=== PATIENT | female | born 1975 | race Caucasian/White ===

== ENCOUNTER 2024-09-22 22:25 | Emergency (ER) | payer BC, SELFPAY ==
[2024-09-22 22:35] VITALS: BP 166/89
[2024-09-22 22:43] VITALS: BP 167/98
[2024-09-22 23:00] VITALS: BP 153/81
[2024-09-22 23:23] LABS: Urine Albumin Negative (Neg - Trace); Urine Bilirubin Negative (Negative); Urine Character Clear (Clear); Urine Color Straw; Urine Glucose Negative (Negative); Urine Ketone Negative (Negative); Urine Leukocyte Negative (Negative); Urine Nitrite Negative (Negative); Urine Occult Blood Negative (Negative); Urine Urobilinogen Negative (Neg - 1+)
--- NOTE | 2024-09-22 23:33 | ED.GENMED ---
History of Present Illness
General
Chief Complaint: Heart Rate Problem
Source: patient
Exam Limitations: none
Time Seen by Provider: 09/22/24 22:56
Nursing documentation reviewed up to this point in time: agreed with
History of Present Illness
History of Present Illness:
49 yo female w h/o Prothrombin gene mutations, hemochromatosis followed by Hematology, PE 2018, no longer anticoagulated, presents stating 'my blood pressure is usually low..it's been high for the past week: 160/95.' States while she was driving 2
p.m yesterday she developed chest tightness, felt shaky and 'my blood pressure went through the roof...' drove herself to [facility], reports she had neg workup including two neg Troponin, nl CXR, nl. labs. States her BP there was 170/98. They also
did a CT PE study which she reports was negative. She has been feeling 'not right' asks if she's had a problem with a right lower tooth, could that cause an infection in her heart? Asking 'what is making me feel this way?' States last night she was
jolted awake with sharp upper chest pain that she also felt in mid upper back, it is fleeting, for seconds and she has had several episodes since.
Denies anxiety.
States she has been urinating more frequently than usual lately denies dysuria. Denies flank pain
Past History
Past History
ED Past Medical History: Hypercholesterolemia and Other (Hemochromatosis)
ED Past Surgical History: Cholecystectomy
Patient has exhibited threatening behavior?: No
Social History
Tobacco: Non-smoker
Alcohol: Occasional
Drug: None
Personal: Single
Living: alone
Employment: Employed
Review of Systems
Review of Systems
Allergies reviewed?: Yes
All Other Systems: ROS reviewed and negative except as documented in HPI and ROS
Constitutional: Denies fever
Respiratory: Denies cough or trouble breathing
Cardiac: Reports chest pain; Denies diaphoresis or palpitations
ABD/GI: Denies abdominal pain, nausea, vomiting, diarrhea or anorexia
: Reports frequency; Denies dysuria, flank pain, difficulty voiding or urgency
Musculoskeletal: Reports no symptoms; Denies edema
Skin: Reports no symptoms
Neurological: Reports no symptoms
Phy Exam
Physical Exam
Physical Exam:
GENERAL: No acute distress. A&Ox3.
CONSTITUTIONAL: Afebrile.
EYES: clear, conjunctivae normal
ENMT: moist mucus membranes, Pharynx nl
RESPIRATORY: Regular respirations, nonlabored, lungs clear.
CARDIOVASCULAR: Regular rate and rhythm, no murmurs, no rubs.
GI: Soft, nontender, normal BS
MUSCULOSKELETAL: Moves with ease. Well perfused.
SKIN: Warm, dry, pink
PSYCH: Mildly anxious mood and affect. Well kept, interactive and appropriate
NEUROLOGIC: Awake, alert and oriented. No focal neurological deficits
Course
Orders/Labs/Results
Orders:
Orders
09/22/24 22:26
Electrocardiogram (*1) Urgent
Reason for Study: Palpitations
EKG- Treatment ONCE
09/22/24 23:14
Urinalysis Reflex To Culture Urgent
Date Specimen was Collected: 09/22/24
Time Specimen was Collected: 23:13
09/22/24 23:30
Lisinopril [Zestril] 2.5 mg PO NOW STA
09/22/24 23:35
Complete Blood Count/With Diff Urgent
Comprehensive Metabolic Panel Urgent
Troponin I Urgent
Abnormal Lab Results
09/22/24
23:35
WBC 12.2 H 10^3/uL
(4.8-10.8)
MCHC 32.9 L g/dL
(33.0-37.0)
Absolute Neuts (auto) 8.4 H 10^3/uL
(1.4-6.5)
Absolute Monos (auto) 0.7 H 10^3/uL
(0.1-0.6)
Glucose 124 H mg/dl
(70-99)
09/22/24 23:35
09/22/24 23:35
Vital Signs
Initial and Last Documented VS:
Initial Vital Signs
Temp Pulse Resp BP Pulse Ox
98.1 F 83 18 166/89 99
09/22/24 22:35 09/22/24 22:35 09/22/24 22:35 09/22/24 22:35 09/22/24 22:35
Last Documented Vital Signs
Temp Pulse Resp BP Pulse Ox
98.1 F 70 19 155/77 98
09/22/24 22:35 09/22/24 23:36 09/22/24 23:00 09/22/24 23:36 09/22/24 23:00
MDM/Problems Addressed
Differential Diagnosis Includes:
primary hypertension, anxiety about health, UTI
MDM/Problems Addressed:
49 yo female w h/o Prothrombin gene mutations, hemochromatosis followed by Hematology, PE 2017, no longer anticoagulated, presents stating 'my blood pressure is usually low..it's been high for the past week: 160/95.' States while she was driving 2
p.m yesterday she developed chest tightness, felt shaky and 'my blood pressure went through the roof...' drove herself to [facility], reports she had neg workup including two neg Troponin, nl CXR, nl. labs. States her BP there was 170/98. They also
did a CT PE study which she reports was negative. She has been feeling 'not right' asks if she's had a problem with a right lower tooth, could that cause an infection in her heart? Asking 'what is making me feel this way?' States last night she was
jolted awake with sharp upper chest pain that she also felt in mid upper back, it is fleeting, for seconds and she has had several episodes since.
Denies anxiety.
Afebrile, NAD
BP 163/89
EKG NSR
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
CMP normal
Troponin
U/A: Negative
11:45 BP 155/77 Pt very concerned about her blood pressure, states it's typically 117 systolic.
No end organ damage discussed with her. Gave her the option of recording her BP at home and discussing with her PCP or Auto Damage Appraiser and discussing BP med or starting low dose BP med now and f/u
She wants to start BP med now.
09/23/24 12:15 a.m.
BP 135/82
*EKG
EKG Intrepretation Date: 09/22/24
Interpretation: normal
Heart Rate: 81
Rate: normal
Rhythm: sinus
[place]: normal axis
Interval: normal interval
QRS Pattern: normal QRS
*Critical Care Note
Total Time (30-74mins, 75-104mins- exclusive of procedures): Not Applicable
ED Attending Note
-
Portions of this chart may have been created with voice recognition software.� Occasional wrong word or��sound alike� substitutions may have occurred due to the inherent limitations of voice recognition software.
Discharge Plan
Departure
Patient with high blood pressure during this ER visit?: Yes
Condition: Good
Discharge Problem:
HBP (high blood pressure)
Instructions: BLOOD PRESSURE
Prescriptions:
New
lisinopril 2.5 mg tablet
2.5 mg PO DAILY Qty: 30 0RF
No Action
acetaminophen [Tylenol Extra Strength] 500 MG tablet
1,000 mg PO PRN PRN (Reason: pain)
polyethylene glycol 3350 17 GRAMS powder in packet
17 grams PO DAILY Qty: 1 0RF
Rx Instructions:
use if no BM > 24h, best if started day of surgery to prevent
over the counter, no Rx given/needed
hydrocodone-acetaminophen 1 TABLET tablet
1 tab PO Q4HPRN PRN (Reason: moderate pain) Qty: 20 0RF
Rx Instructions:
can increase to 2tabs every 4h for severe pain
celecoxib 100 MG capsule
100 mg PO BID Qty: 1 0RF
Rx Instructions:
Can increase to 2 tabs every 12h postop. Use around the clock for first 2-3d, until pain subsides, then can switch to 'as needed'. Already has Rx at home
cyclobenzaprine 10 MG tablet
10 mg PO TIDPRN PRN (Reason: spasm) Qty: 9 0RF
Referrals:
Hank Barnett PA-C [Family Provider] - Call in 1-3 days for appt
Activity Restrictions/Additional Instructions:
As we discussed, your workup here today shows nothing worrisome.
Your EKG is normal
I sent a prescription to your pharmacy for lisinopril 2.5 mg to take daily until you can get into see your primary provider or your multiple knife edge trimmer operator to discuss whether or not you need to continue blood pressure medication.
Take your blood pressure daily under calm circumstances and record it so you can discuss it with your doctor.
Interventions
Interventions:
*Risk Screen - Suicide Last Done: 09/22/24 22:35
*General Assessment Last Done: 09/22/24 22:35
*Neglect/Abuse Screening Last Done: 09/22/24 22:35
ED- Fall Risk Assessment Last Done: 09/22/24 23:23
*ED COVID-19 Vaccine History Last Done: 09/22/24 22:35
ED- Cardiac Assessment Last Done: 09/22/24 23:23
ED- Pulmonary Assessment Last Done: 09/22/24 23:23
Discharge Date and Time
Print Language: DIVEHI
[2024-09-22 23:36] VITALS: BP 155/77
[2024-09-22] MEDS: ZESTRIL 2.5 MG PO (23:36)
[2024-09-22 23:47] LABS: % Basophils 0.3 % (0-2); % Eosinophils 0.9 % (0-6); % Immature Granulocytes 0.2 % (0-0.5); % Lymphocytes 24.4 % (20.5-51.1); % Monocytes 5.5 % (1.7-9.3); % Neutrophils 68.7 % (42.2-75.2); Absolute Eosinophils 0.1 10^3/uL (0-0.7); Absolute Monocytes 0.7 10^3/uL (0.1-0.6); Absolute Neutrophils 8.4 10^3/uL (1.4-6.5); Hemoglobin 12.5 g/dL (12.0-16.0); Mean Corp Hgb Conc. 32.9 g/dL (33.0-37.0); Mean Corpuscular Volume 88.2 fL (81.0-99.0); Mean Platelet Volume 10.4 fL (7.4-10.4); Nucleated Red Blood Cells % 0 %; Platelet Count 392 10^3/uL (130-400); Red Blood Cell Count 4.31 10^6/uL (4.20-5.40); Red Cell Dist. Width 12.5 % (11.5-14.5); White Blood Cell Count 12.2 10^3/uL (4.8-10.8)
[2024-09-22 23:59] LABS: ALT (SGPT) 18 U/L (0-35); AST (SGOT) 23 U/L (14-36); Albumin 4.3 g/dl (3.5-5.0); Alkaline Phosphatase 83 U/L (38-126); Blood Urea Nitrogen 13 mg/dl (7-17); Calcium 9.1 mg/dl (8.4-10.2); Carbon Dioxide 25 mmol/L (22-30); Chloride 104 mmol/L (98-107); Glucose 124 mg/dl (70-99); Potassium 4.6 mmol/L (3.5-5.1); Sodium 139 mmol/L (135-145); Total Bilirubin 0.4 mg/dl (0.2-1.3); Total Protein 7.4 g/dl (6.3-8.2); eGFR > 60.00
[2024-09-23] VITALS: BP 135/82
[2024-09-23 00:09] LABS: Troponin I < 0.012 ng/ml
== END 2024-09-23 00:27 | disposition home or self-care (01) ==
LOC: EMR 22:25
PROVIDERS: Registered Nurse; EMERGENCY PHYSICIAN Student in an Organized Health Care Education/Training Program; FAMILY PHYSICIAN Physician Assistant Medical
DX: R03.0 Elevated blood-pressure reading, without diagnosis of hypertension (principal); R07.89 Other chest pain; M54.6 Pain in thoracic spine; R00.2 Palpitations; E83.119 Hemochromatosis, unspecified; E78.00 Pure hypercholesterolemia, unspecified; D68.52 Prothrombin gene mutation; F41.9 Anxiety disorder, unspecified; Z90.49 Acquired absence of other specified parts of digestive tract; Z86.711 Personal history of pulmonary embolism
CPT/HCPCS: 99283; 80053; 81003; 84484; 85025; 93005

== ENCOUNTER → 2025-06-13 14:32 | Outpatient (REF) | payer BC, SELFPAY | LOC: WDC 14:32 | PROVIDERS: ATTENDING PHYSICIAN Physician Assistant Medical | DX: R92.8 Other abnormal and inconclusive findings on diagnostic imaging of breast (principal); Z12.31 Encounter for screening mammogram for malignant neoplasm of breast | CPT/HCPCS: 77063; 77067 ==